=== PATIENT | female | born 1975 | race Caucasian/White ===

== ENCOUNTER 2024-08-02 19:17 | Emergency (ER) | payer SELFPAY ==
[2024-08-02 19:32] VITALS: BP 166/111; PULSE 111; RESP 20; TEMP 36.8; O2SAT 98; BMI 24.0
[2024-08-02] MEDS: lidocaine 1% INJ 10 mL (per mL) INJECTION (19:49)
--- NOTE | 2024-08-02 20:21 | ED_ITS ---
HPI - Wound/Laceration General: Chief Complaint: Wound/Laceration Stated Complaint: left hand lac Time Seen by Provider: 08/02/24 19:30 History of Present Illness: Patient is a 48-year-old [id number] female that presents to the emergency department with a laceration to the left middle finger?palmar aspect. Patient reports that she was trimming her hedges and then reached down to warehouse order picker her electric byron. Unfortunately she had not turned them off and it cut her finger. She arrives with a laceration to the fingertip that has no active bleeding. Patient is not up-to-date on tetanus. Review of Systems General: Reports: 10 or more systems reviewed and unremarkable except in HPI and below Physical Exam Const: COMMON NORMALS: no acute distress GENERAL APPEARANCE: cooperative ORIENTATION/CONSCIOUSNESS: Yes awake Extremity: COMMON NORMALS: normal to inspection NARRATIVE EXTREMITY EXAM: Laceration to palmar aspect of the middle finger of the left hand distal to DIP. No nailbed involvement. The laceration is approximately 1-1.5 years linear laceration. GENERAL: Yes normal exam except as noted Psych: COMMON NORMALS: mental status grossly normal, Normal thought process present, cooperative, activity/motor behavior normal, denies homicidal ideation and denies suicidal ideation THOUGHT PROCESS: Normal thought process present Skin: COMMON NORMALS: no rashes or lesions noted, no wounds and turgor normal GENERAL SKIN EXAM: no rashes or lesions noted and turgor normal Procedures Laceration Laceration 1: Site: hand (Left middle finger palmar aspect, distal to DIP) Side (If applicable): left Size (cm): 1 Description: linear Depth: simple, single layer Local Anesthetic: lidocaine 2% Amount of anesthesia used (mL): 1 Pre-repair: wound explored, irrigated extensively and deep structures intact Skin layer closed with: nylon Size (cm): 6-0 Number of sutures: 2 Technique: horizontal mattress Course Vital Signs: Vital signs: Vital Signs Temperature 98.2 F 08/02/24 19:32 Pulse Rate 111 H 08/02/24 19:32 Respiratory Rate 20 H 08/02/24 19:32 Blood Pressure 166/111 08/02/24 19:32 Pulse Oximetry 98 08/02/24 19:32 MDM - Wound/Laceration Medical Decision Making Patient evaluated in the emergency department for finger laceration. She underwent a laceration repair. I attempted to get an x-ray but patient declined. Patient's tetanus was updated. She is going to need sutures out in 2 weeks. She needs to monitor the area closely for infection. If she develops redness warmth or drainage she should return to the emergency department or see your primary care provider. Patient is agreeable. All questions answered No radiology studies performed this visit Discharge Plan Discharge Patient Disposition: Home Clinical Impression: Laceration Condition: Stable Discharge Orders: Discharge ED (Routine); Ordered 08/02/24 Ordered By: Raul Raines Discharge Diet: Advance as tolerated Discharge Activity: Resume usual activity Patient Instructions: Pain Management, Finger Laceration (ED) Activity Restrictions/Additional Instructions: Wash with soap and water every day Monitor for redness warmth or drainage If you develop redness warmth or drainage from the site you need to be reevaluated by your primary care office Sutures out in 2 weeks. Coding Level of Care Code ED Knockdown Worker for Dann Shaw
[2024-08-02 20:32] VITALS: BP 155/94; PULSE 91; RESP 16; O2SAT 100
== END 2024-08-02 20:32 | disposition home or self-care (01) ==
PROVIDERS: Emergency Provider Nurse Practitioner
DX: S61.213A Laceration without foreign body of left middle finger without damage to nail, initial encounter (principal); X58.XXXA Exposure to other specified factors, initial encounter
CPT/HCPCS: 12001; 99283; 99291